=== PATIENT | female | born 1975 | race Caucasian/White ===

== ENCOUNTER 2023-09-27 15:06 | Emergency (ER) | payer OTHER, SELFPAY ==
[2023-09-27 15:14] VITALS: BP 143/93
[2023-09-27 16:17] VITALS: BMI 28.1
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
== END 2023-09-27 16:58 | disposition home or self-care (01) ==
LOC: EMR 15:06
PROVIDERS: EMERGENCY PHYSICIAN Emergency Medicine
DX: S39.012A Strain of muscle, fascia and tendon of lower back, initial encounter (principal); S80.811A Abrasion, right lower leg, initial encounter; V49.40XA Driver injured in collision with unspecified motor vehicles in traffic accident, initial encounter; Y92.410 Unspecified street and highway as the place of occurrence of the external cause; I10 Essential (primary) hypertension
CPT/HCPCS: 99283; 72100